=== PATIENT | male | born 1955 | race Caucasian/White ===

== ENCOUNTER → 2018-10-29 | Outpatient (CLI) | payer OTHER | END | disposition home or self-care (01) | LOC: CFH 08:35 | PROVIDERS: ATTEND Internal Medicine Cardiovascular Disease | DX: I35.2 Nonrheumatic aortic (valve) stenosis with insufficiency (principal); I10 Essential (primary) hypertension; E78.5 Hyperlipidemia, unspecified | CPT/HCPCS: 93306 ==

== ENCOUNTER 2018-12-19 01:31 | Inpatient (IN) | payer OTHER ==
[~2018-12-19] VITALS: Ht 177.8 cm; Wt 88.0 kg
[2018-12-22 12:50] VITALS: BP 131/70
== END 2018-12-22 18:07 | disposition home health service (06) | DRG 314 ==
LOC: ED 02:46 → EDIP 03:44 → 5SO 04:45
PROVIDERS: ADMIT Internal Medicine; ATTEND Internal Medicine
PROC: 02HV33Z Insertion of Infusion Device into Superior Vena Cava, Percutaneous Approach (ICD-10-PCS; principal; 2018-12-19)
PROC: B5181ZA Fluoroscopy of Superior Vena Cava using Low Osmolar Contrast, Guidance (ICD-10-PCS; 2018-12-19)
PROC: B548ZZA Ultrasonography of Superior Vena Cava, Guidance (ICD-10-PCS; 2018-12-19)
PROC: 5A2204Z Restoration of Cardiac Rhythm, Single (ICD-10-PCS; 2018-12-19)
DX: T82.6XXA Infection and inflammatory reaction due to cardiac valve prosthesis, initial encounter (principal); I33.0 Acute and subacute infective endocarditis; D68.69 Other thrombophilia; I24.8 Other forms of acute ischemic heart disease; I47.1 Supraventricular tachycardia; I47.2 Ventricular tachycardia; I48.92 Unspecified atrial flutter; N17.9 Acute kidney failure, unspecified; D72.829 Elevated white blood cell count, unspecified; E78.5 Hyperlipidemia, unspecified; H40.9 Unspecified glaucoma; I48.0 Paroxysmal atrial fibrillation; Z88.0 Allergy status to penicillin; Z88.8 Allergy status to other drugs, medicaments and biological substances; Z79.01 Long term (current) use of anticoagulants; Z87.891 Personal history of nicotine dependence; Z95.3 Presence of xenogenic heart valve; Y83.1 Surgical operation with implant of artificial internal device as the cause of abnormal reaction of the patient, or of later complication, without mention of misadventure at the time of the procedure; T36.8X5A Adverse effect of other systemic antibiotics, initial encounter; Y92.89 Other specified places as the place of occurrence of the external cause
CPT/HCPCS: 36415; 36573; 71045; 71275; 80048; 82040; 83605; 83735; 84145; 84443; 84484; 85025; 85379; 85520; 85651; 86140; 87040; 92960; 93005; 93312; 93321; 93325; 99291; G0378; J0696; J1644; J2704; Q9967; C1751; J7030

== ENCOUNTER 2018-12-29 16:53 | Observation (INO) | payer OTHER ==
[~2018-12-29] VITALS: Ht 177.8 cm; Wt 86.2 kg
[~2018-12-29 16:53] MED LIST: APIX5TAB PO; ASPI-650 PO; ATOR-2 PO; METO25TA35 PO; MULT-508 PO; TIMO5DRO28 OP; VERA120T8 PO
--- NOTE | 2018-12-29 17:15 | NUR ---
GINA. REPORT RECEIVED FROM EMS. PT C/O DZY THEN LEFT SIDED SHAKY, NUMBNESS, DIFFERENT SENSATION THAN RIGHT SIDE SINCE 4PM TODAY. HX OF A-FLUTTER. PT'S AOX4. RESPS EVEN AND UNLABORED. LEFT SIDE PUPIL IS SMALLER THAN RIGHT SIDE.(L 2MM, R 3MM). STRENGTH +2 BILATERALLY. SPEECH CLEAR. ALL MONITORS IN PLACE. CALL LIGHT WITHIN REACH.
--- NOTE | 2018-12-29 17:28 | NUR ---
PT USING URINAL IN ROOM NOW.
[2018-12-29 18:09] LABS: BASOPHILS # (AUTO) 0.01 x10^3/uL (0-0.1); BASOPHILS % (AUTO) 0 % (0-1); EOSINOPHILS # (AUTO) 0.21 x10^3/uL (0-0.4); EOSINOPHILS % (AUTO) 2 % (1-7); LYMPHOCYTES # (AUTO) 0.87 x10^3/uL (1-3.4); LYMPHOCYTES % (AUTO) 9 % (22-44); MD NO; MEAN CORPUSCULAR HEMOGLOBIN 31.7 pg (27.5-34.5); MEAN CORPUSCULAR HGB CONC 33.4 g/dL (33.2-36.2); MEAN CORPUSCULAR VOLUME 94.8 fL (81-97); MEAN PLATELET VOLUME 7.4 fL (7.4-10.4); MONOCYTES # (AUTO) 0.52 x10^3/uL (0.2-0.8); MONOCYTES % (AUTO) 5 % (2-9); NEUTROPHILS # (AUTO) 8.63 x10^3/uL (1.8-6.8); NEUTROPHILS % (AUTO) 84 % (42-75); PLATELET COUNT 162 x10^3/uL (130-400); RED BLOOD COUNT 4.78 x10^6/uL (4.38-5.82); RED CELL DISTRIBUTION WIDTH 13.9 % (9.4-14.8)
[2018-12-29 18:18] LABS: ALANINE AMINOTRANSFERASE 31 U/L (12-78); ALBUMIN 3.4 g/dL (3.4-5.0); ANION GAP 5 mmol/L (5-15); CALCIUM 8.8 mg/dL (8.5-10.1); CHLORIDE 110 mmol/L (98-107); CREATININE 1.01 mg/dL (0.7-1.3)
[2018-12-29 18:20] LABS: ALKALINE PHOSPHATASE 73 U/L (45-117); BILIRUBIN,TOTAL 0.6 mg/dL (0.2-1.0); TOTAL PROTEIN 7.3 g/dL (6.4-8.2)
--- NOTE | 2018-12-29 18:47 | NUR ---
PT RESTING IN [facility]. ALL MONITORS IN PLACE. CALL LIGHT WITHIN REACH. PT'S AOX4. RESPS EVEN AND UNLABORED.
--- NOTE | 2018-12-29 18:48 | NUR ---
PT TO CT NOW.
--- NOTE | 2018-12-29 19:01 | NUR ---
REPORT GIVEN TO DANIELA BENITES.
[2018-12-29] MEDS ORDERED: ACETAMINOPHEN 325 MG TABLET PO PRN (20:00)
[2018-12-29] MEDS ORDERED: CEFTRIAXONE PMX 2GM/50ML 50 ML IV SCH (20:00)
[2018-12-29] MEDS ORDERED: CEFT2FRO2 IV (20:48)
[2018-12-29] MEDS ORDERED: CHOL3000 PO (20:48)
[2018-12-29] MEDS ORDERED: HEPA1DIS12 SQ (20:48)
[2018-12-29] MEDS ORDERED: CEFTRIAXONE PMX 2GM/50ML 50 ML ONE (20:54)
[2018-12-29] MEDS ORDERED: OMNIPAQUE 350 MG/ML, 100ML BOTTLE ONE (21:00)
[2018-12-29 22:41] VITALS: BP 160/88
[2018-12-29] MEDS: APIXABAN 5 MG TABLET PO SCH (22:48)
[2018-12-29] MEDS: ASPIRIN 81 MG TABLET EC PO SCH (22:49)
[2018-12-29] MEDS: VERAPAMIL ER 120MG TABLET.ER PO SCH (22:49)
[2018-12-30 00:41] VITALS: BP 123/78
[2018-12-30 04:59] LABS: BASOPHILS # (AUTO) 0.05 x10^3/uL (0-0.1); BASOPHILS % (AUTO) 1 % (0-1); EOSINOPHILS # (AUTO) 0.18 x10^3/uL (0-0.4); EOSINOPHILS % (AUTO) 2 % (1-7); LYMPHOCYTES # (AUTO) 1.18 x10^3/uL (1-3.4); LYMPHOCYTES % (AUTO) 12 % (22-44); MD NO; MEAN CORPUSCULAR HEMOGLOBIN 31.5 pg (27.5-34.5); MEAN CORPUSCULAR HGB CONC 33.5 g/dL (33.2-36.2); MEAN CORPUSCULAR VOLUME 94.1 fL (81-97); MEAN PLATELET VOLUME 7.5 fL (7.4-10.4); MONOCYTES # (AUTO) 0.77 x10^3/uL (0.2-0.8); MONOCYTES % (AUTO) 8 % (2-9); NEUTROPHILS # (AUTO) 7.95 x10^3/uL (1.8-6.8); NEUTROPHILS % (AUTO) 79 % (42-75); PLATELET COUNT 148 x10^3/uL (130-400); RED BLOOD COUNT 4.68 x10^6/uL (4.38-5.82); RED CELL DISTRIBUTION WIDTH 13.8 % (9.4-14.8)
[2018-12-30 05:14] LABS: CHLORIDE 104 mmol/L (98-107)
[2018-12-30 05:20] LABS: ALANINE AMINOTRANSFERASE 28 U/L (12-78); ALBUMIN 3.3 g/dL (3.4-5.0); ALKALINE PHOSPHATASE 69 U/L (45-117); ANION GAP 8 mmol/L (5-15); BILIRUBIN,TOTAL 0.6 mg/dL (0.2-1.0); CALCIUM 8.8 mg/dL (8.5-10.1); CHOL/HDL RATIO 3.7; CHOLESTEROL, TOTAL 157 mg/dL (140-239); CREATININE 1.03 mg/dL (0.7-1.3); HDL CHOL % 27 % (26-37); HDL CHOLESTEROL (DIRECT) 43 mg/dL (40-60); LDL CHOLESTEROL,CALCULATED 95 mg/dL (54-169); LDL/HDL RATIO 2.2 (0.5-3.0); TOTAL PROTEIN 6.7 g/dL (6.4-8.2); TRIGLYCERIDES 93 mg/dL (50-200); VLDL CHOLESTEROL 19 mg/dL (0-25)
[2018-12-30] MEDS: ASPIRIN 81 MG TABLET EC PO SCH (06:06)
[2018-12-30 08:11] VITALS: BP 119/76
[2018-12-30] MEDS ORDERED: ATORVASTATIN 80 MG TABLET PO SCH (09:00)
[2018-12-30] MEDS ORDERED: TEMPLATE NON-FORMULARY MED. (Timolol (Betimol) 1 DROP) OP SCH (09:00)
[2018-12-30] MEDS: MULTIVITAMIN 1 TABLET PO SCH (09:45)
[2018-12-30] MEDS: VERAPAMIL ER 120MG TABLET.ER PO SCH ×2 (09:45→21:48)
[2018-12-30] MEDS: APIXABAN 5 MG TABLET PO SCH ×2 (09:45→21:48)
[2018-12-30] MEDS: ATORVASTATIN 80 MG TABLET PO SCH (09:45)
[2018-12-30] MEDS: TIMOLOL 0.5% OP SCH (10:32)
[2018-12-30 14:02] VITALS: BP 109/66
[2018-12-30] MEDS ORDERED: CEFTRIAXONE PMX 2GM/50ML 50 ML IV SCH (17:00)
[2018-12-30] MEDS ORDERED: DIPHENHYDRAMINE 25 MG CAPSULE PO PRN (19:30)
[2018-12-30 20:30] VITALS: BP 116/71
[2018-12-30 21:46] VITALS: BP 112/67
[2018-12-31 01:01] VITALS: BP 117/73
[2018-12-31] MEDS: ASPIRIN 81 MG TABLET EC PO SCH (05:10)
[2018-12-31 07:37] VITALS: BP 116/74
[2018-12-31] MEDS: TIMOLOL 0.5% OP SCH (09:00)
[2018-12-31] MEDS: APIXABAN 5 MG TABLET PO SCH (09:22)
[2018-12-31] MEDS: ATORVASTATIN 80 MG TABLET PO SCH (09:22)
[2018-12-31] MEDS: VERAPAMIL ER 120MG TABLET.ER PO SCH (09:22)
[2018-12-31] MEDS: MULTIVITAMIN 1 TABLET PO SCH (09:23)
[2018-12-31 13:39] VITALS: BP 110/69
== END 2018-12-31 15:15 | disposition home health service (06) ==
LOC: ED 18:03 → EDIP 19:37 → INTOOBSV 19:37 → 4EST 21:14
PROVIDERS: ADMIT Family Medicine; ATTEND Family Medicine
DX: G95.9 Disease of spinal cord, unspecified (principal); E78.5 Hyperlipidemia, unspecified; I38 Endocarditis, valve unspecified; I48.0 Paroxysmal atrial fibrillation; Z79.01 Long term (current) use of anticoagulants; Z79.899 Other long term (current) drug therapy
CPT/HCPCS: 36415; 70450; 70496; 70498; 70551; 80053; 80061; 85025; 87040; 93005; 96365; 96366; 97161; 97165; 99285; G0378; J0696; Q0163; Q9967; 96374

== ENCOUNTER 2019-08-24 15:50 | Outpatient (CLI) | payer OTHER ==
[~2019-08-24 15:50] MED LIST changes: +CEFT2FRO2 IV; +CHOL3000 PO; +HEPA1DIS12 SQ
== END 2019-08-24 23:59 | disposition home or self-care (01) ==
LOC: CFH 15:50
PROVIDERS: ATTEND Internal Medicine Cardiovascular Disease
DX: I34.8 Other nonrheumatic mitral valve disorders (principal); I51.7 Cardiomegaly
CPT/HCPCS: 93306

== ENCOUNTER → 2020-08-04 | Outpatient (CLI) | payer OTHER ==
[~2020-08-04] MED LIST changes: -ASPI-650 PO; +ASPI325T20 PO
== END | disposition home or self-care (01) ==
LOC: CFH 13:35
PROVIDERS: ATTEND Internal Medicine Cardiovascular Disease
DX: I37.1 Nonrheumatic pulmonary valve insufficiency (principal)
CPT/HCPCS: 93306